=== PATIENT | male | born 1950 | race Caucasian/White ===

== ENCOUNTER 2020-02-23 15:44 | Outpatient (REF) | payer OTHER, SELFPAY ==
[2020-02-23 21:32] LABS: Calculated LDL 111 mg/dL (<100); Cholesterol 189 mg/dL (<200); HDL Cholesterol 68 mg/dL (40-60); Triglyceride 54 mg/dL (<150)
[2020-03-03 10:45] LABS: PSA, Screening 5.8 ng/mL (0-4.5)
== END 2020-02-23 16:04 ==
LOC: LBN 15:44
PROVIDERS: PCP Emergency Medicine; Visit Provider Emergency Medicine
DX: Z00.00 Encounter for general adult medical examination without abnormal findings (principal); Z13.220 Encounter for screening for lipoid disorders; Z12.5 Encounter for screening for malignant neoplasm of prostate
CPT/HCPCS: 80061; 84153

== ENCOUNTER → 2023-05-31 00:59 | Outpatient (CLI) | payer MEDICARE, SELFPAY ==
--- NOTE | 2023-05-31 15:00 | DI.US_ITS ---
APPROVED REPORT EXAM: Comprehensive 2D, Doppler, and color-flow Echocardiogram Patient Location: Out-Patient Boiler Room Operator: Karel Howe RDCS (AE) Indications: murmur Conclusion Moderately dilated LA,other chambers normal sizes. Normal LV function,EF 65%. Normal RV function Moderately thickened MV leaflets with mild godfrey valve prolapse(MVP),moderate to severe MR. Mild TR, NO PHTN. No intracardiac shunt No pericardial effusion. Wall motion Left Ventricle The left ventricle is normal size. The left ventricular systolic function is normal. The left ventric ular ejection fraction is within the normal range. There is normal left ventricular wall thickness. T here is normal LV segmental wall motion. There is no ventricular septal defect visualized. Right Ventricle The right ventricle is normal size. The right ventricular systolic function is normal. Atria Left atrium is mildly dilated. The right atrium size is normal. The interatrial septum is intact with no evidence for an atrial septal defect. Aortic Valve The aortic valve is normal in structure. Aortic valve is trileaflet. There is no aortic valvular sten osis. No aortic regurgitation is present. Mitral Valve Mild bileaflet mitral valve prolapse. Mild mitral annular calcification. No evidence of mitral valve stenosis. Moderate mitral regurgitation. Tricuspid Valve The tricuspid valve is normal in structure. There is no tricuspid valve stenosis. Mild tricuspid regu rgitation. The RVSP is 23.4 mmHg. Pulmonic Valve The pulmonary valve is normal in structure. There is no pulmonic valvular stenosis. Trivial pulmonic regurgitation. Great Vessels The aortic root is normal in size. The ascending aorta is normal in size. Aortic arch is normal in ca liber. IVC is normal in size and collapses >50% with inspiration. Pericardium There is no pericardial effusion. 2D Dimensions IVSD d PLAX 0.81 cm M: 0.6-1.2 Ao Root d 3.55 cm M: 3.1 - 3.7 LVPW d PLAX 0.83 cm M: 0.6 - 1.2 Ao Asc Diam d 3.02 cm M: 2.6 - 3.4 LVID d PLAX 5.57 cm M: 4.2 - 5.8 LVDs 3.65 cm M: 2.5 - 4.0 LV EF Teichholz 63.0 % FS 34.49 % LV EDV (Teich) 152.0 mL LV ESV (Teich) 56.3 mL Stroke Vol Index (Teich) 55.65 M-Mode TAPSE 1.68 cm (M/F) >1.7 Auto EF LV EDV A4C 128.0 mL LV EDV A2C 141.8 mL LV EDV BP 139.7 mL LV ESV A4C 52.1 mL LV ESV A2C 55.4 mL LV ESV BP 54.0 mL LVEF(%) A4C 59.3 % LVEF(%) A2C 60.9 % LVEF(%) BP 61.4 % LV SV A4C 76.0 ml LV SV A2C 86.4 ml LV SV BP 85.7 ml LV CO A4C 6.3 L/min LV CO A2C 7.3 L/min LV CO BP 6.8 L/min HR A4C 82.95 BPM HR A2C 84.32 BPM LV EDV Index (BP) LA Volume LA Length A4C 4.6 cm LA Length A2C 4.3 cm LA Area A4C s 15.29 cm2 LA Area A2C s 14.04 cm2 LA Vol A4C A-L 43.11 mL LA Vol A2C A-L 39.05 mL LA Vol Biplane A-L 42.5 mL LA Vol/BSA A4C A-L LA Vol/BSA A2C A-L LA Vol/BSA BP A-L 24.7 mL/m2 LA Vol A4C MOD 38.8 mL LA Vol A2C MOD 36.6 mL LA Vol BP MOD 38.9 mL RA Volume RA Area A4C 10.1 cm2 RA ESV A4C (A-L) 20.7mL RA Vol/BSA A4C A-L RA Length A4C 4.2 cm RA ESV A4C (MOD) 21.7mL LV Diastology MV E' medial 0.081 (>0.07 m/s) MV E Vmax 1.03 (0.4-1.3 m/s) MV E/E' MED 12.66 (<14) MV A Vmax 0.90 (0.4-1.3 m/s) MV E' lateral 0.167 (>0.1 m/s) E/A Ratio 1.1 MV E/E' LAT 6.16 (<14) MV E' Average 0.124 m/s MV E/E'(average) 8.29 Aortic Valve LVOT Vmax 1.26 m/s LVOT Peak Grad 6.4 mmHg LVOT VTI 0.258 m LVOT Mean Grad 3.0 mmHg LVOT SV 100.25 mL LVOT Diam s 2.20 cm Mitral Valve MV Vmax TIPS 1.23 m/s MR Vmax 5.73 m/s MV Mean Grad 2.3 (<2mmHg) MR VTI 1.381 m MV VTI 0.238 m MR Peak Grad 131.2 mmHg MR Mean Grad 85.6 mmHg Pulmonary Valve PV Vmax 1.34 (0.5-1.5 m/s) RVOT Vmax 0.69 m/s PV Peak Grad 7.2 mmHg RVOT Peak Gr. 1.9 mmHg PV Mean Alec 0.83 m/s RVOT VTI 0.141 m PV Mean Grad 3.4 mmHg RVOT Mean Gr. 1.3 mmHg Tricuspid Valve RA Pressure 3.00 mmHg TR Vmax 2.26 m/s TR Peak Grad 20.3 mmHg RVSP (TR) 23.4 mmHg
== END ==
PROVIDERS: PCP Family Medicine; Visit Provider Family Medicine
DX: R01.1 Cardiac murmur, unspecified (principal)
CPT/HCPCS: 93306

== ENCOUNTER 2025-01-26 09:54 | Outpatient (CLI) | payer MEDICARE, SELFPAY ==
[2025-01-26 14:31] LABS: ALT 13 U/L (16-63); AST 21 U/L (15-37); Albumin 4.0 g/dL (3.4-5.0); Alkaline Phosphatase 46 U/L (46-116); Anion Gap 9.4 mmol/L (3-11); BUN 14 mg/dL (7-18); Bilirubin, Total 1.1 mg/dL (0.2-1.0); CO2 27.6 mmol/L (21.0-32.0); Calcium 9.4 mg/dL (8.5-10.1); Calculated LDL 125 mg/dL (<100); Chloride 105 mmol/L (98-107); Cholesterol 195 mg/dL (<200); Estimated GFR 79.97 (mL/min/1.73m2); Glucose 104 mg/dL (74-106); HDL Cholesterol 56 mg/dL (>or=40); Potassium 4.2 mmol/L (3.5-5.1); Sodium 142 mmol/L (136-145); Total Protein 7.3 g/dL (6.4-8.2); Triglyceride 72 mg/dL (<150)
[2025-01-26 22:29] LABS: PSA, Diagnostic 6.6 ng/mL (<=6.5)
[2025-01-27 09:58] LABS: Hepatitis C Ab w Rflx HCV PCR Negative (Negative)
== END 2025-01-26 09:55 | disposition home or self-care (01) ==
LOC: LOS 09:54
PROVIDERS: PCP Family Medicine; Referring Provider Family Medicine; Visit Provider Family Medicine
DX: Z11.59 Encounter for screening for other viral diseases (principal); N40.0 Benign prostatic hyperplasia without lower urinary tract symptoms; I10 Essential (primary) hypertension
CPT/HCPCS: 36415; 80053; 80061; 86803; 84153